=== PATIENT | male | born 1975 | race Caucasian/White ===

== ENCOUNTER 2024-12-23 11:13 | Emergency (ER) | payer BC ==
[2024-12-23] MEDS: Bacitracin Oint 1 GM U/D Packet TOP ONE (14:14)
[2024-12-23] MEDS: Lidocaine 1% 10 ML MDV INJECT ONE (14:14)
== END 2024-12-23 14:34 | disposition home or self-care (01) ==
LOC: JP.ED 11:13
DX: S61.210A Laceration without foreign body of right index finger without damage to nail, initial encounter (principal); W22.8XXA Striking against or struck by other objects, initial encounter; Y93.89 Activity, other specified
CPT/HCPCS: 12002; 73130; 99283; J2003